=== PATIENT | female | born 2000 ===

== ENCOUNTER → 2022-07-25 | Outpatient (CLI) | payer BC | LOC: MC.RAD 08:16 | DX: N64.4 Mastodynia (principal); Z87.2 Personal history of diseases of the skin and subcutaneous tissue ==

== ENCOUNTER 2023-06-24 16:36 | Emergency (ER) | payer OTHER ==
[~2023-06-24] VITALS: Ht 160 cm; Wt 84.1 kg
[2023-06-24 17:14] LABS: BASO % 0.5 % (0.0-2.0); EOS # 0.2 K/mm3 (0.0-0.7); EOS % 2.7 % (0.0-4.0); GRAN # 3.5 K/mm3 (1.4-6.5); GRAN % 59.7 % (42.2-75.2); HEMATOCRIT 38.5 % (37.0-47.0); HEMOGLOBIN 12.8 g/dl (12.5-16.0); LYMPH # 1.8 K/mm3 (1.2-3.4); LYMPH % 30.9 % (20.0-51.0); MEAN CELL VOLUME 91 fl (80.0-100.0); MEAN CORPUSCULAR HEMOGLOBIN 30 pg (27-31); MEAN CORPUSCULAR HGB CONC 33 g/dl (33.0-37.0); MEAN PLATELET VOLUME 9.7 fl (7.4-10.4); MONO # 0.4 K/mm3 (0.1-0.6); PLATELET COUNT 245 K/mm3 (130-400); RED BLOOD COUNT 4.24 M/mm3 (4.10-5.30); REDCELL DISTRIBUTION WIDTH-CV 12.5 % (11.5-14.5)
[2023-06-24 17:33] LABS: ALBUMIN 4.4 gm/dL (3.5-5.0); BILIRUBIN,TOTAL 0.7 mg/dL (0.2-1.2); CALCIUM 9.2 mg/dL (8.4-10.2); CREATININE, serum 0.83 mg/dL (0.57-1.11); TOTAL PROTEIN 7.2 gm/dL (6.2-8.1)
[2023-06-24 18:17] LABS: INR 1.2 (0.8-3.0); PROTHROMBIN TIME 13.2 SECONDS (9.7-12.8)
[2023-06-24 18:20] LABS: D-DIMER < 200.00 ng/mLDDu (200-230)
[2023-06-24 20:19] VITALS: BP 123/84; PULSE 74; TEMP 99
== END 2023-06-24 20:19 | disposition home or self-care (01) ==
LOC: COL.ER 16:36
PROVIDERS: Emergency Medicine
DX: M79.661 Pain in right lower leg (principal); Z79.3 Long term (current) use of hormonal contraceptives; Z91.040 Latex allergy status